=== PATIENT | female | born 1985 | race Two or more races ===

== ENCOUNTER 2023-11-09 13:32 | Outpatient (CLI) | payer OTHER ==
--- NOTE | 2023-11-09 15:44 | XRAY Report ---
PROCEDURE: Lumbar Spine 2-3V INDICATIONS: LOW BACK STRAIN TECHNIQUE: 2 views of the lumbar spine were acquired. COMPARISON: No relevant comparisons at time of dictation. FINDINGS: Bones: 5 [id number] vertebrae are present. There is normal bony alignment. No vertebral body compression fractures. No suspicious bony lesions. Mild disc height loss at L5-S1. Anterior margina l osteophytes at the L2 and L3 endplates. Soft tissues: Overlying bowel gas pattern is normal. No suspicious soft tissue calcifications. IMPRESSION: Mild degenerative disc disease at L5-S1 and L2-3. Reviewed by: Tray Sharma MD on 11/09/2023 3:43 PM PDT Approved by: Tray Sharma MD on 11/09/2023 3:43 PM PDT Station ID: [id number]
== END 2023-11-09 13:33 | disposition home or self-care (01) ==
LOC: DI 13:32
PROVIDERS: ATTEND Family Medicine
DX: M51.36 Other intervertebral disc degeneration, lumbar region (principal); M51.37 Other intervertebral disc degeneration, lumbosacral region